=== PATIENT | female | born 1940 | race Caucasian/White ===

== ENCOUNTER 2022-08-26 17:19 | Inpatient (IN) | payer MEDICARE, BC ==
[2022-08-26 17:32] VITALS: BMI 31.2
[2022-08-26] MEDS ORDERED: SIMVASTATIN PO SCH (21:00)
[2022-08-26] MEDS ORDERED: EZETIMIBE PO SCH (21:00)
[2022-08-26] MEDS ORDERED: [UNRECOGNIZED DRUG - OTHER] PO SCH (21:00)
[2022-08-26 21:03] LABS: #Eosinphils 0.1 10x3/uL (0.0-0.5); #Monocytes 0.5 10x3/uL (0.0-1.1); %Basophils 0.4 % (0.0-2.0); %Eosinophils 1.3 % (0.0-6.0); %Monocytes 6.6 % (0.0-10.0); %Neutrophils 66.2 % (40.0-75.0); Hemoglobin 7.8 g/dL (12.0-15.5); Mean Corpuscular HGB CONC 35.3 g/dL (32.0-36.0); Mean Corpuscular Hemoglobin 35.8 pg (27.0-33.0); Mean Corpuscular Volume 101.4 fl (81.6-98.3); Mean Platelet Volume 10.4 fl (7.4-10.4); Platelet Count 210 10x3/uL (150-450); RBC Distribution Width 15.1 % (11.5-14.5); Red Blood Cell (RBC) Count 2.18 10x6/uL (3.90-5.03); White Blood Cell (WBC) Count 7.6 10x3/uL (3.5-10.5)
[2022-08-26 21:08] LABS: INR-International Normal Ratio 1.1; PTT 28.8 sec (22.0-33.0); Prothrombin Time 11.4 sec (9.5-12.1)
[2022-08-26 21:12] LABS: ALT (SGPT) 8 U/L (8-55); AST (SGOT) 20 U/L (5-34); Albumin 3.4 g/dL (3.4-4.8); Alkaline Phosphatase 43 U/L (40-110); Anion Gap 16 mmol/L (10-20); BUN (Urea Nitrogen) 24 mg/dL (9.8-20.1); Bilirubin, Total 0.7 mg/dL (0.2-1.2); Calc. Creatinine Clearance 70 mL/min (70-130); Calcium 8.2 mg/dL (7.8-10.44); Carbon Dioxide 20 mmol/L (23-31); Chloride 105 mmol/L (98-107); Estimated GFR 77; Globulin 1.9 g/dL (2.4-3.5); Glucose 95 mg/dL (83-110); Magnesium 1.9 mg/dL (1.6-2.6); Potassium 3.9 mmol/L (3.5-5.1); Protein, Total 5.3 g/dL (5.8-8.1); Sodium 137 mmol/L (136-145)
[2022-08-26] MEDS: busPIRone HCl 15 MG TAB PO SCH (21:53)
[2022-08-26] MEDS: Atorvastatin Calcium 20 MG TAB PO SCH (21:54)
[2022-08-26] MEDS: Ezetimibe 10 MG TAB PO SCH (21:54)
[2022-08-26] MEDS: Sodium Chloride 0.9% 1,000 ML IV SCH (21:55)
[2022-08-26] MEDS ORDERED: GoLYTELY 4,000 ml Bottle PO SCH (22:00)
[2022-08-26] MEDS: Lorazepam 1 MG TAB PO PRN (22:04)
[2022-08-27 01:31] LABS: Hemoglobin 7.8 g/dL (12.0-15.5)
[2022-08-27] MEDS ORDERED: Sodium Chloride 0.9% 1,000 ML IV SCH (04:00)
[2022-08-27 04:29] LABS: #Eosinphils 0.1 10x3/uL (0.0-0.5); #Monocytes 0.5 10x3/uL (0.0-1.1); #Neutrophils 5.2 10x3/uL (1.5-8.4); %Basophils 0.3 % (0.0-2.0); %Eosinophils 1.7 % (0.0-6.0); %Lymphocytes 21.2 % (18.0-47.0); %Monocytes 6.7 % (0.0-10.0); %Neutrophils 69.3 % (40.0-75.0); Hemoglobin 7.7 g/dL (12.0-15.5); Mean Corpuscular HGB CONC 34.7 g/dL (32.0-36.0); Mean Corpuscular Hemoglobin 35.5 pg (27.0-33.0); Mean Corpuscular Volume 102.3 fl (81.6-98.3); Mean Platelet Volume 10.4 fl (7.4-10.4); Platelet Count 203 10x3/uL (150-450); RBC Distribution Width 15.2 % (11.5-14.5); Red Blood Cell (RBC) Count 2.17 10x6/uL (3.90-5.03); White Blood Cell (WBC) Count 7.6 10x3/uL (3.5-10.5)
[2022-08-27 04:41] LABS: Anion Gap 16 mmol/L (10-20); BUN (Urea Nitrogen) 24 mg/dL (9.8-20.1); Calc. Creatinine Clearance 71 mL/min (70-130); Calcium 8.2 mg/dL (7.8-10.44); Carbon Dioxide 20 mmol/L (23-31); Chloride 106 mmol/L (98-107); Estimated GFR 78; Glucose 101 mg/dL (83-110); Sodium 138 mmol/L (136-145)
[2022-08-27] MEDS: Sodium Chloride 0.9% 1,000 ML IV SCH ×3 (07:26→21:23)
[2022-08-27 08:22] LABS: Hemoglobin 7.6 g/dL (12.0-15.5)
[2022-08-27] MEDS: Digoxin 0.25 MG TAB PO SCH (08:46)
[2022-08-27] MEDS: Bupropion 150 MG SR TAB PO SCH (08:46)
[2022-08-27] MEDS: Sertraline 100 MG TAB PO SCH (08:47)
[2022-08-27] MEDS: busPIRone HCl 15 MG TAB PO SCH ×2 (08:47→21:23)
[2022-08-27] MEDS ORDERED: PROPOFOL 20 ML ONE (13:27)
[2022-08-27] MEDS: Ezetimibe 10 MG TAB PO SCH (21:24)
[2022-08-27] MEDS: Atorvastatin Calcium 20 MG TAB PO SCH (21:24)
[2022-08-27] MEDS: Lorazepam 1 MG TAB PO PRN (21:24)
[2022-08-28 05:33] LABS: Hemoglobin 7.3 g/dL (12.0-15.5); Platelet Count 217 10x3/uL (150-450)
[2022-08-28] MEDS: Sodium Chloride 0.9% 1,000 ML IV SCH (06:19)
[2022-08-28] MEDS: Bupropion 150 MG SR TAB PO SCH (10:02)
[2022-08-28] MEDS: Sertraline 100 MG TAB PO SCH (10:02)
[2022-08-28] MEDS: Digoxin 0.25 MG TAB PO SCH (10:03)
[2022-08-28] MEDS: busPIRone HCl 15 MG TAB PO SCH ×2 (10:03→20:56)
[2022-08-28] MEDS ORDERED: Lorazepam 0.5 MG TAB PO SCH (12:00)
[2022-08-28] MEDS: Ezetimibe 10 MG TAB PO SCH (20:55)
[2022-08-28] MEDS: Atorvastatin Calcium 20 MG TAB PO SCH (20:55)
[2022-08-28] MEDS: Lorazepam 1 MG TAB PO PRN (20:55)
[2022-08-29 06:19] LABS: Hemoglobin 6.9 g/dL (12.0-15.5); Platelet Count 197 10x3/uL (150-450)
[2022-08-29] MEDS: Sertraline 100 MG TAB PO SCH (10:08)
[2022-08-29] MEDS: busPIRone HCl 15 MG TAB PO SCH ×2 (10:09→20:18)
[2022-08-29] MEDS: Digoxin 0.25 MG TAB PO SCH (10:09)
[2022-08-29] MEDS: Lorazepam 1 MG TAB PO PRN ×2 (10:09→20:18)
[2022-08-29] MEDS: Bupropion 150 MG SR TAB PO SCH (10:10)
[2022-08-29] MEDS: Ezetimibe 10 MG TAB PO SCH (20:18)
[2022-08-29] MEDS: Atorvastatin Calcium 20 MG TAB PO SCH (20:18)
[2022-08-30 05:41] LABS: Hemoglobin 8.6 g/dL (12.0-15.5); Platelet Count 195 10x3/uL (150-450)
[2022-08-30 09:59] VITALS: BP 117/54; TEMP 98
[2022-08-30] MEDS: Bupropion 150 MG SR TAB PO SCH (11:13)
[2022-08-30] MEDS: Sertraline 100 MG TAB PO SCH (11:13)
[2022-08-30] MEDS: Digoxin 0.25 MG TAB PO SCH (11:13)
[2022-08-30] MEDS: busPIRone HCl 15 MG TAB PO SCH (11:13)
[2022-08-30] MEDS: Lorazepam 1 MG TAB PO PRN (11:18)
== END 2022-08-30 11:40 | disposition home or self-care (01) | DRG 920 ==
LOC: CSHTELE 17:19
PROVIDERS: ADMIT Internal Medicine; ATTEND Family Medicine
PROC: 0W3P8ZZ Control Bleeding in Gastrointestinal Tract, Via Natural or Artificial Opening Endoscopic (ICD-10-PCS; 2022-08-27)
PROC: 0DBG8ZZ Excision of Left Large Intestine, Via Natural or Artificial Opening Endoscopic (ICD-10-PCS; 2022-08-27)
PROC: 0DBF8ZZ Excision of Right Large Intestine, Via Natural or Artificial Opening Endoscopic (ICD-10-PCS; 2022-08-27)
PROC: 0DBM8ZX Excision of Descending Colon, Via Natural or Artificial Opening Endoscopic, Diagnostic (ICD-10-PCS; 2022-08-27)
PROC: 30233N1 Transfusion of Nonautologous Red Blood Cells into Peripheral Vein, Percutaneous Approach (ICD-10-PCS; principal; 2022-08-29)
DX: K91.840 Postprocedural hemorrhage of a digestive system organ or structure following a digestive system procedure (principal); D62 Acute posthemorrhagic anemia; I48.20 Chronic atrial fibrillation, unspecified; K51.90 Ulcerative colitis, unspecified, without complications; I10 Essential (primary) hypertension; Z20.822 Contact with and (suspected) exposure to COVID-19; E78.5 Hyperlipidemia, unspecified; K63.5 Polyp of colon; K64.8 Other hemorrhoids; Y83.8 Other surgical procedures as the cause of abnormal reaction of the patient, or of later complication, without mention of misadventure at the time of the procedure; F41.9 Anxiety disorder, unspecified; K57.30 Diverticulosis of large intestine without perforation or abscess without bleeding; Z96.653 Presence of artificial knee joint, bilateral; Z86.73 Personal history of transient ischemic attack (TIA), and cerebral infarction without residual deficits; Z88.8 Allergy status to other drugs, medicaments and biological substances; Z88.6 Allergy status to analgesic agent; Z79.82 Long term (current) use of aspirin; Z79.899 Other long term (current) drug therapy; Z98.51 Tubal ligation status; Z90.49 Acquired absence of other specified parts of digestive tract; Z95.0 Presence of cardiac pacemaker; Z98.49 Cataract extraction status, unspecified eye; Z82.49 Family history of ischemic heart disease and other diseases of the circulatory system; Z79.01 Long term (current) use of anticoagulants
CPT/HCPCS: 36415; 36430; 71045; 80048; 80053; 83735; 85014; 85018; 85025; 85049; 85610; 85730; 86850; 86900; 86901; 93005; 93010; J2704; J7050; P9016